=== PATIENT | male | born 1975 | race Hispanic/Latino ===

== ENCOUNTER 2018-08-08 18:26 | Emergency (ER) | payer BC, OTHER ==
[2018-08-08] MEDS ORDERED: DIPHENHYDRAMINE 50 MG/ML VIAL ONE ×2 (19:17→20:28)
[2018-08-08] MEDS ORDERED: METOCLOPRAMIDE 10 MG/2mL INJ ONE (19:17)
[2018-08-08] MEDS ORDERED: HYDRALAZINE HCL 20 MG/ML VIAL ONE (19:17)
[2018-08-08 19:46] LABS: Absolute Lymphocytes (CBC) 4.1 K/uL (0.7-4.9); Absolute Monocytes 0.7 K/uL (0.1-1.3); Basophils % 0.6 % (0-1.3); Eosinophils % 3.5 % (0-4.4); Hematocrit 45.5 % (39.6-49.0); Lymphocytes % 33.3 % (15.3-44.8); MPV 9.9 fL (7.6-11.3); Monocytes % 5.9 % (3.3-12.3); RBC Red Blood Cell Count 5.57 M/uL (4.33-5.43)
[2018-08-08 19:52] LABS: BUN Blood Urea Nitrogen 11 mg/dL (7-18); Bicarbonate 30 mmol/L (21-32); Glucose Level 137 mg/dL (74-106); Potassium 3.6 mmol/L (3.5-5.1); Sodium Level 142 mmol/L (136-145)
--- NOTE | 2018-08-08 19:55 | RAD REPORT ---
EXAM DESCRIPTION: CT - Head Brain Wo Cont - 08/08/2018 7:10 pm CLINICAL HISTORY: Headache COMPARISON: 2007 TECHNIQUE: Computed axial tomography of the head was obtained. IV contrast was not requested. All CT scans are performed using dose optimization technique as appropriate and may include automated exposure control or mA/KV adjustment according to patient size. FINDINGS: An intracranial bleed is not seen . The ventricles are normal in caliber. No extra-axial fluid collection is noted. Fluid within the sinuses/ mastoids is not seen. IMPRESSION: No acute intracranial abnormality is seen. If patient's symptoms persist MRI of the bra in would be recommended.
--- NOTE | 2018-08-08 20:53 | ER ---
Nurse's Notes [facility] Name: Eduardo Loving Jr Age: 43 yrs Sex: Male : 1975 Arrival Date: 08/08/2018 Time: 18:30 Bed 7 Private MD: Diagnosis: Hypertensive Urgency Presentation: 08/08 18:31 Presenting complaint: Patient states: I have been having real high BP and a headache. la1 They started me on amlodipine 10mg daily one week ago. Transition of care: patient was not received from another setting of care. Onset of symptoms was August 08, 2018. Risk Assessment: Do you want to hurt yourself or someone else? Patient reports no desire to harm self or others. Initial Sepsis Screen: Does the patient meet any 2 criteria? No. Patient's initial sepsis screen is negative. Does the patient have a suspected source of infection? No. Patient's initial sepsis screen is negative. Care prior to arrival: None. 18:31 Method Of Arrival: Ambulatory la1 18:31 Acuity: ARLETH 2 la1 Historical: - Allergies: 18:33 No Known Allergies; la1 - PMHx: 18:33 Hypertension; la1 - Immunization history:: Adult Immunizations up to date. - Social history:: Smoking status: Patient/guardian denies using tobacco. - Ebola Screening: : No symptoms or risks identified at this time. Screenin:41 Abuse screen: Denies threats or abuse. Denies injuries from another. Nutritional ca1 screening: No deficits noted. Tuberculosis screening: No symptoms or risk factors identified. Fall Risk None identified. Assessment: 18:41 General: Appears in no apparent distress. Behavior is calm, cooperative, appropriate ca1 for age. Pain: Complains of pain in base of the skull Pain does not radiate. Pain currently is 7 out of 10 on a pain scale. Pain began a week ago but has worsen today. Neuro: Level of Consciousness is awake, alert, obeys commands, Oriented to person, place, time, situation, Appropriate for age. Cardiovascular: Heart tones S1 S2 present Capillary refill < 3 seconds Patient's skin is warm and dry. Respiratory: Airway is patent Respiratory effort is even, unlabored, Respiratory pattern is regular, symmetrical, Breath sounds are clear bilaterally. GI: Abdomen is round non-distended, Bowel sounds present X 4 quads. Abd is soft and non tender X 4 quads. : No signs and/or symptoms were reported regarding the genitourinary system. EENT: No signs and/or symptoms were reported regarding the EENT system. Derm: Skin is intact, is healthy with good turgor, Skin is pink, warm \T\ dry. Musculoskeletal: Circulation, motion, and sensation intact. Capillary refill < 3 seconds, Range of motion: intact in all extremities. 19:27 General: Appears in no apparent distress. comfortable, Behavior is calm, cooperative, aj appropriate for age. Pain: Complains of pain in base of the skull. Neuro: Level of Consciousness is awake, alert, obeys commands, Oriented to person, place, time, situation, Reports headache. Respiratory: Airway is patent Respiratory effort is even, unlabored, Respiratory pattern is regular, symmetrical. Derm: Skin is intact, is healthy with good turgor, Skin is normal, flushed. Vital Signs: 18:33 BP 170 / 120; Pulse 97; Resp 18; Temp 97.8; Pulse Ox 98% on R/A; Weight 108.86 kg; la1 Height 5 ft. 6 in. (167.64 cm); 19:27 BP 155 / 104; Pulse 87; Resp 19; Pulse Ox 99% on R/A; aj 19:53 BP 129 / 81; Pulse 113; Resp 20; Pulse Ox 98% on R/A; aj 21:10 BP 138 / 82; Pulse 107; Resp 18; Pulse Ox 99% on R/A; aj 18:33 Body Mass Index 38.74 (108.86 kg, 167.64 cm) la1 ED Course: 18:30 Patient arrived in ED. rg4 18:32 Triage completed. la1 18:33 Arm band placed on left wrist. la1 18:34 Umm Tian, RN is Primary Nurse. aj 18:36 Hesham Barksdale PA is PHCP. jr8 18:36 Carlos Linda MD is Attending Physician. jr8 18:41 Patient has correct armband on for positive identification. Bed in low position. Call ca1 light in reach. Side rails up X 1. Pulse ox on. NIBP on. 19:04 Umm Tian, RN is Primary Nurse. aj 19:08 CT completed. Patient moved to CT. Patient moved back from CT. bq 19:11 CT Head Brain wo Cont In Process Unspecified. EDMS 19:27 Inserted saline lock: 22 gauge in right antecubital area, using aseptic technique. aj Blood collected. 20:49 Attending Physician role handed off by Carlos Linda MD ps1 20:49 Terrance Meier MD is Attending Physician. ps1 20:53 Rasheed Win MD is Referral Physician. jr8 21:10 No provider procedures requiring assistance completed. IV discontinued, intact, aj bleeding controlled, No redness/swelling at site. Pressure dressing applied. Administered Medications: 19:26 Drug: Benadryl 25 mg Route: IVP; Site: right antecubital; aj 20:22 Follow up: Response: Pain is decreased aj 19:26 Drug: hydrALAZINE 10 mg Route: IV; Rate: calculated rate; Site: right antecubital; aj 19:28 Follow up: Response: Blood pressure is lowered; IV Status: Completed infusion; IV aj Intake: 0.5ml 19:27 Drug: Reglan 10 mg Route: IVP; Site: right antecubital; aj 20:22 Follow up: Response: Pain is decreased aj 20:21 Drug: Benadryl 25 mg Route: IVP; Site: right antecubital; aj 21:12 Follow up: Response: Pain is decreased aj Intake: 19:28 IV: 1ml; Total: 1ml. aj Outcome: 20:53 Discharge ordered by . jr8 21:10 Discharged to home ambulatory. aj 21:10 Condition: good 21:10 Discharge instructions given to patient, family, Instructed on discharge instructions, follow up and referral plans. Demonstrated understanding of instructions, follow-up care. 21:12 Patient left the ED. aj Signatures: Dispatcher [employer] EDMS Umm Tian, RN RN Radha Irene Josh, PA PA jr8 Shaheen Cross RN RN Lucy Ball rg4 Terrance Meier MD MD ps1 Indu Mason RN RN ca1 Corrections: (The following items were deleted from the chart) 18:33 18:31 Acuity: ARLETH 3 la1 la1
--- NOTE | 2018-08-08 20:54 | EDPHYS ---
Physician Documentation [facility] Name: Eduardo Loving Jr Age: 43 yrs Sex: Male : 1975 Arrival Date: 08/08/2018 Time: 18:30 Bed 7 Private MD: ED Physician Terrance Meier HPI: 08/08 18:57 This 43 yrs old Male presents to ER via Ambulatory with complaints of jr8 Headache, High Blood Pressure. 18:57 Onset: The symptoms/episode began/occurred gradually, 1 week(s) ago. Associated signs jr8 and symptoms: The patient has no apparent associated signs or symptoms. Severity of symptoms: At its worst the pain was moderate, in the emergency department the pain is unchanged. The patient has not experienced similar symptoms in the past. The patient has been recently seen by a physician:. Patient with known hypertension that had been unmedicated until recently. Stated that he has had a headache for the past week that is not going away. Saw PCP on Friday that gave him Amlodipine 10 mg QD. Has been taking it since then with no relief. BP still elevated upon arrival . Historical: - Allergies: 18:33 No Known Allergies; la1 - PMHx: 18:33 Hypertension; la1 - Immunization history:: Adult Immunizations up to date. - Social history:: Smoking status: Patient/guardian denies using tobacco. - Ebola Screening: : No symptoms or risks identified at this time. ROS: 18:57 Eyes: Negative for injury, pain, redness, and discharge, ENT: Negative for injury, jr8 pain, and discharge, Neck: Negative for injury, pain, and swelling, Cardiovascular: Negative for chest pain, palpitations, and edema, Respiratory: Negative for shortness of breath, cough, wheezing, and pleuritic chest pain, Abdomen/GI: Negative for abdominal pain, nausea, vomiting, diarrhea, and constipation, Back: Negative for injury and pain, MS/Extremity: Negative for injury and deformity, Skin: Negative for injury, rash, and discoloration. 18:57 Neuro: Positive for headache, Negative for altered mental status, dizziness, gait disturbance, hearing loss, loss of consciousness, numbness, seizure activity, speech changes, syncope, near syncope, tingling, tinnitus, tremor, visual changes, weakness. Exam: 18:57 Eyes: Pupils equal round and reactive to light, extra-ocular motions intact. Lids and jr8 lashes normal. Conjunctiva and sclera are non-icteric and not injected. Cornea within normal limits. Periorbital areas with no swelling, redness, or edema. ENT: Nares patent. No nasal discharge, no septal abnormalities noted. Tympanic membranes are normal and external auditory canals are clear. Oropharynx with no redness, swelling, or masses, exudates, or evidence of obstruction, uvula midline. Mucous membranes moist. Neck: Trachea midline, no thyromegaly or masses palpated, and no cervical lymphadenopathy. Supple, full range of motion without nuchal rigidity, or vertebral point tenderness. No Meningismus. Cardiovascular: Regular rate and rhythm with a normal S1 and S2. No gallops, murmurs, or rubs. Normal PMI, no JVD. No pulse deficits. Respiratory: Lungs have equal breath sounds bilaterally, clear to auscultation and percussion. No rales, rhonchi or wheezes noted. No increased work of breathing, no retractions or nasal flaring. Abdomen/GI: Soft, non-tender, with normal bowel sounds. No distension or tympany. No guarding or rebound. No evidence of tenderness throughout. Back: No spinal tenderness. No costovertebral tenderness. Full range of motion. Skin: Warm, dry with normal turgor. Normal color with no rashes, no lesions, and no evidence of cellulitis. MS/ Extremity: Pulses equal, no cyanosis. Neurovascular intact. Full, normal range of motion. Neuro: Awake and alert, GCS 15, oriented to person, place, time, and situation. Cranial nerves II-XII grossly intact. Motor strength 5/5 in all extremities. Sensory grossly intact. Cerebellar exam normal. Normal gait. Vital Signs: 18:33 BP 170 / 120; Pulse 97; Resp 18; Temp 97.8; Pulse Ox 98% on R/A; Weight 108.86 kg; la1 Height 5 ft. 6 in. (167.64 cm); 19:27 BP 155 / 104; Pulse 87; Resp 19; Pulse Ox 99% on R/A; aj 19:53 BP 129 / 81; Pulse 113; Resp 20; Pulse Ox 98% on R/A; aj 21:10 BP 138 / 82; Pulse 107; Resp 18; Pulse Ox 99% on R/A; aj 18:33 Body Mass Index 38.74 (108.86 kg, 167.64 cm) la1 MDM: 18:36 Patient medically screened. [facility] 20:52 Data reviewed: vital signs, nurses notes, lab test result(s), EKG, radiologic studies, jr8 CT scan. Data interpreted: Pulse oximetry: on room air is 98 %. Interpretation: normal. Counseling: I had a detailed discussion with the patient and/or guardian regarding: the historical points, exam findings, and any diagnostic results supporting the discharge/admit diagnosis, the presence of at least one elevated blood pressure reading (>120/80) during this emergency department visit, lab results, radiology results, the need for outpatient follow up, a family practitioner, to return to the emergency department if symptoms worsen or persist or if there are any questions or concerns that arise at home. Response to treatment: the patient's symptoms have resolved after treatment, the patient's blood pressure is in an acceptable range, the patient's pain is gone. 08/08 18:54 Order name: CBC with Diff; Complete Time: 19:50 [facility] 08/08 18:54 Order name: Basic Metabolic Panel; Complete Time: 19:52 [facility] 08/08 18:54 Order name: CT Head Brain wo Cont; Complete Time: 19:56 [facility] 08/08 18:54 Order name: IV; Complete Time: 19:30 [facility] 08/08 18:54 Order name: EKG - Nurse/Tech; Complete Time: 19:07 [facility] Administered Medications: 19:26 Drug: Benadryl 25 mg Route: IVP; Site: right antecubital; aj 20:22 Follow up: Response: Pain is decreased aj 19:26 Drug: hydrALAZINE 10 mg Route: IV; Rate: calculated rate; Site: right antecubital; aj 19:28 Follow up: Response: Blood pressure is lowered; IV Status: Completed infusion; IV aj Intake: 0.5ml 19:27 Drug: Reglan 10 mg Route: IVP; Site: right antecubital; aj 20:22 Follow up: Response: Pain is decreased aj 20:21 Drug: Benadryl 25 mg Route: IVP; Site: right antecubital; aj 21:12 Follow up: Response: Pain is decreased aj Disposition: 08/09 03:29 Co-signature as Attending Physician, Terrance Meier MD Available for consultation at ps1 all times . Disposition: 08/08/18 20:53 Discharged to Home. Impression: Hypertensive Urgency. - Condition is Stable. - Discharge Instructions: Hypertension. - Medication Reconciliation Form, Thank You Letter, Antibiotic Education, Prescription Opioid Use form. - Follow up: Rasheed Win MD; When: 2 - 3 days; Reason: Recheck today's complaints, Continuance of care, Re-evaluation by your physician. - Problem is new. - Symptoms have improved. Signatures: Dispatcher [employer] EDMS Umm Tian, RN RN aj Hesham Barksdale PA PA jr8 Shaheen Cross RN RN la1 Terrance Meier MD MD ps1 Corrections: (The following items were deleted from the chart) 08/08 21:12 20:53 08/08/2018 20:53 Discharged to Home. Impression: Hypertensive Urgency. Condition aj is Stable. Forms are Medication Reconciliation Form, Thank You Letter, Antibiotic Education, Prescription Opioid Use. Follow up: Rasheed Win; When: 2 - 3 days; Reason: Recheck today's complaints, Continuance of care, Re-evaluation by your physician. Problem is new. Symptoms have improved. jr8
--- NOTE | 2018-08-10 11:48 | EKG ---
Test Date: 2018-08-08 Test Time: 19:00:10 Office Messenger: SURAJ MEASUREMENT RESULTS: Intervals: Rate: 92 VT: 158 QRSD: 88 QT: 372 QTc: 460 [place]: P: 45 VT: 158 QRS: 48 T: 56 INTERPRETIVE STATEMENTS: Normal sinus rhythm Normal ECG Compared to ECG 04/19/2016 11:30:27 No significant changes Electronically Signed On 08-10-18 11:43:19 [employer] by Paramjit Guzman
== END 2018-08-08 21:12 | disposition home or self-care (01) ==
LOC: ER 18:26
DX: I16.0 Hypertensive urgency (principal)
CPT/HCPCS: 36415; 70450; 80048; 85025; 93005; J0360; J2765